=== PATIENT | male | born 1950 | race Caucasian/White ===

== ENCOUNTER 2022-09-05 20:12 | Emergency (ER) | payer MEDICAID ==
[~2022-09-05] VITALS: Ht 170.2 cm; Wt 74.8 kg
--- NOTE | 2022-09-05 20:16 | NUR ---
[id number] C/O DRING ALCOHOL AND USING METH LAST AT 2PM
[2022-09-05] MEDS ORDERED: ONDANSETRON HCL/PF 4 MG/2 ML VIAL ONE (20:27)
[2022-09-05] MEDS ORDERED: ONDANSETRON HCL/PF 4 MG/2 ML VIAL IVP ONE (20:30)
[2022-09-05] MEDS ORDERED: IV NS 0.9% 1,000 ML BAG IV ONE (20:30)
[2022-09-05 20:57] LABS: BASOPHILS # (AUTO) 0.1 K/uL (0.0-0.2); BASOPHILS % (AUTO) 0.6 % (0.0-2.0); EOSINOPHILS % (AUTO) 3.4 % (0.0-6.0); HEMATOCRIT 39 % (39-51); HEMOGLOBIN 12.9 g/dL (13.5-17.5); LYMPHOCYTES # (AUTO) 1.8 K/uL (0.8-4.8); LYMPHOCYTES % (AUTO) 20.9 % (20.0-44.0); MEAN CORPUSCULAR HGB CONC 33 g/dl (31.0-36.0); MEAN CORPUSCULAR VOLUME 88 fL (80-96); MONOCYTES # (AUTO) 1.1 K/uL (0.1-1.30); MONOCYTES % (AUTO) 12.7 % (2.0-12.0); NEUTROPHILS # (AUTO) 5.2 K/uL (1.8-8.9); NEUTROPHILS % (AUTO) 62.4 % (43.0-81.0); PLATELET COUNT (AUTO) 224 K/uL (150-450); RED BLOOD CELL COUNT(AUTO) 4.42 MIL/uL (4.5-6.0); WHITE BLOOD COUNT (AUTO) 8.4 K/uL (4.3-11.0)
[2022-09-05 21:07] LABS: CALCIUM, SERUM 8.9 mg/dL (8.5-10.1); CREATININE 1.1 mg/dL (0.6-1.3); POTASSIUM 3.1 mmol/L (3.5-5.1)
[2022-09-05 21:13] LABS: ALBUMIN 4.1 g/dL (3.4-5.0); BILIRUBIN,DIRECT 0.1 mg/dL (0.0-0.2); BILIRUBIN,TOTAL 0.5 mg/dL (0.2-1.0)
--- NOTE | 2022-09-05 21:16 | NUR ---
COVID ANTIGEN SWAB COLLECTED AND SENT TO LAB
--- NOTE | 2022-09-05 22:19 | NUR ---
URINE COLLECTED AND SENT TO LAB
[2022-09-05 22:39] LABS: BILIRUBIN,URINE NEGATIVE (NEGATIVE); COLOR,URINE YELLOW (YELLOW); LEUKOCYTE ESTERASE ,URINE NEGATIVE (NEGATIVE); NITRITE, URINE NEGATIVE (NEGATIVE); PH,URINE 5.5 (5.0-8.0); PROTEIN,URINE 30 mg/dl (NEGATIVE); UGLUCOSE NEGATIVE (NEGATIVE); UROBILINOGEN,URINE 0.2 EU/dL (0.2)
[2022-09-05 22:40] LABS: BACTERIA,URINE Few /HPF (None Seen); RBC,URINE 0-2 /HPF (0-2); SQUAMOUS EPITHELIAL CELL,UR Rare /HPF (None Seen)
--- NOTE | 2022-09-05 22:42 | NUR ---
PT TAKEN TO [facility]IA [facility]
--- NOTE | 2022-09-06 04:46 | NUR ---
PT SLEEPING IN BED. ALL NEEDS MET AT THIS TIME. VSS. SITTER AT PT'S BEDSIDE
--- NOTE | 2022-09-06 15:53 | NUR ---
FAXED CLINICALS TO [facility] INTAKE.
--- NOTE | 2022-09-07 06:07 | NUR ---
FOLLOWED UP WITH [facility] INTAKE. AWAITING FOR INSURANCE VERIFICATION.
--- NOTE | 2022-09-07 07:44 | NUR ---
PER [facility], PT IS ACCEPTED AT [facility], UNDER [address], NUMBER FOR REPORT [phone]. SEND PATIENT AFTER 9AM. [facility] TO ARRANGE TRANSPORT
--- NOTE | 2022-09-07 07:54 | NUR ---
[facility] CALLED FOR TRANSPORT REQUESTED ETA > 0900 ETA 1000
[2022-09-07 10:28] VITALS: BP 164/86
--- NOTE | 2022-09-07 10:42 | NUR ---
Called [facility] report given to NITO Silverman
== END 2022-09-07 10:49 ==
LOC: ER 20:17
DX: F15.129 Other stimulant abuse with intoxication, unspecified (principal); F10.129 Alcohol abuse with intoxication, unspecified; Y90.0 Blood alcohol level of less than 20 mg/100 ml; R45.851 Suicidal ideations; Z20.822 Contact with and (suspected) exposure to COVID-19
CPT/HCPCS: 99285; 96374; 96361; 85025; 80048; 87086; 80076; 81001; 36415; 87426; 80143; 80320; 80307; J2405; J7030; C9803; G0480